=== PATIENT | male | born 1965 | race Caucasian/White ===

== ENCOUNTER 2019-10-17 13:06 | Emergency (ER) | payer MEDICAID ==
[~2019-10-17] VITALS: Ht 190.5 cm; Wt 81.6 kg
--- NOTE | 2019-10-17 14:02 | NUR ---
BIB SELF 54 YEAR ROLD MALE NEEDS REFILL KEPPRA 1000MG AND LAMICTAL 200MG. ALERT AND OREINTED X4, BREATHING EVEN AND UNLABORED WITH NO DISTRESS NOTED. SKIN INTACT. WAITING TO BE SEEN
--- NOTE | 2019-10-17 14:15 | NUR ---
Patient discharged to home in stable condition. Written and verbal after care instructions given. Patient verbalizes understanding of instruction.
[2019-10-17 14:22] VITALS: BP 122/70
== END 2019-10-17 14:15 | disposition home or self-care (01) ==
LOC: ER 13:10
DX: Z76.0 Encounter for issue of repeat prescription (principal); G40.909 Epilepsy, unspecified, not intractable, without status epilepticus; Z60.2 Problems related to living alone